=== PATIENT | male | born 1990 | race Caucasian/White ===

== ENCOUNTER 2019-09-10 17:18 | Emergency (ER) | payer MEDICARE, SELFPAY ==
[2019-09-10 17:41] VITALS: BP 150/93; PULSE 110; RESP 16; TEMP 37.1; O2SAT 99; BMI 25.7
[2019-09-10 18:50] LABS: Add Manual Diff / Slide Review NO; Basophils Absolute Auto 100 /uL (0-100); Basophils Percent Auto 1.2 % (0-2); Eosinophils Absolute Auto 100 /uL (0-450); Eosinophils Percent Auto 1.1 % (2-4); Hematocrit 48.1 % (41-53); Hemoglobin 15.9 g/dL (13.5-17.5); Lymphocytes Absolute Auto 2200 /uL (1100-4500); Lymphocytes Percent Auto 30.5 % (25-40); Mean Corpuscular HGB Conc 33.2 % (30-36); Mean Corpuscular Hemoglobin 27.8 PG (26-34); Mean Corpuscular Volume 83.8 fL (80-100); Monocytes Absolute Auto 600 /uL (0-900); Neutrophils Absolute Auto 4200 /uL (1500-7000); Neutrophils Percent Auto 59.2 % (50-75); Platelet Count 197 X10^3/uL (150-400); Red Blood Cell Count 5.74 X10^6/uL (4.5-5.9); Red Cell Distribution Width 13.5 % (11.6-14.8); White Blood Cell Count 7.1 X10^3/uL (4.5-11.0)
[2019-09-10] MEDS: SODIUM CHLORIDE 0.9% 1,000 ML 150 ML IV (18:53)
[2019-09-10 18:58] LABS: INR 1.1 (0.9-1.3); Prothrombin Time 12.6 SECONDS (10.1-12.7)
--- NOTE | 2019-09-10 18:58 | PC.NURSE ---
Patient reports symptoms began approximately 3 days ago as brain fog and chest pain. Reports chest pain as a 5/10 and that it is located in the epigastric area. Pain does not radiate and has not worsened or improved since onset. Peripheral pulses +2 all 4 extremities, capillary refill <2s, and EKG performed. Patient speaks with flat affect and has negative FAST exam. Patient's mother at bedside reports she has given patient risperidone over the last 3 days and the brain fog has moderately improved by chest discomfort increased.
[2019-09-10 19:00] LABS: PTT Partial Thromboplastin Tim 29 SECONDS (26.4-36.2)
[2019-09-10 19:02] LABS: Lactate (Lactic Acid) 0.9 mmol/L (0.7-2.1)
[2019-09-10 19:04] LABS: Acetaminophen < 10 ug/mL (10-30); Alanine Aminotransferase 25 IU/L (<50); Albumin Globulin Ratio 1.5 (1.0-2.8); Alkaline Phosphatase 100 U/L (38-126); Aspartate Aminotransferase 25 IU/L (17-59); BUN Creatinine Ratio 13.5 (6-22); Bilirubin Total 1.7 mg/dL (0.2-1.3); Blood Urea Nitrogen 12 mg/dL (9-20); Calcium 9.9 mg/dL (8.4-10.2); Carbon Dioxide 26 mmol/L (22-32); Chloride 107 mmol/L (98-107); Estimated Glomerular Filt Rate > 60.0 mL/min (>60); Ethanol (ETOH) < 10 mg/dL; Globulin 3.3 g/dL (1.7-4.1); Glucose 107 mg/dL (70-100); HEMOLYSIS < 15 (0-50); Potassium 5.1 mmol/L (3.4-5.1); Salicylate < 1.0 mg/dL (<20); Sodium 140 mmol/L (137-145); Total Protein 8.3 g/dL (6.3-8.2)
[2019-09-10 19:34] LABS: Bacteria Urine None Seen
[2019-09-10 19:36] LABS: Appearance Urine UA CLEAR; Bilirubin Urine UA NEGATIVE (NEGATIVE); Color Urine UA YELLOW; Glucose Urine UA NEGATIVE (Negative); Ketones Urine UA 1+ (NEGATIVE); Leukocyte Esterase Urine UA NEGATIVE (NEGATIVE); Nitrite Urine UA NEGATIVE (Negative); Occult Blood Urine UA NEGATIVE (Negative); Protein Urine UA NEGATIVE (Negative); Urobilinogen Urine UA 0.2 E.U./dL (0.2)
[2019-09-10 19:42] LABS: RBC Urine 0-1/HPF (0-5/HPF); Squamous Epithelial Cell Urine None Seen (0-5/HPF); WBC Urine 0-1/HPF (0-5/HPF)
[2019-09-10 19:43] LABS: Culture Indicated Urine Cult Not Indicated; Mucus Urine 1+ (Negative); UR Morphine/Opiate cutoff 300 Negative (Negative); Ur Creatinine Normal (Normal); Ur Specific Gravity Normal (Normal); Urine Amphetamines Negative (Negative); Urine Barbiturates Negative (Negative); Urine Benzodiazepines Negative (Negative); Urine Cocaine Negative (Negative); Urine MDMA Negative (Negative); Urine Methadone Negative (Negative); Urine Methamphetamines Negative (Negative); Urine Oxycodone Negative (Negative); Urine Phencyclidine Negative (Negative); Urine Tetrahydrocannabinol Negative (Negative); Urine Tricyclic Antidepressant Negative (Negative); Urine pH Normal (Normal)
[2019-09-10 20:12] VITALS: PULSE 63; RESP 18; O2SAT 99
--- NOTE | 2019-09-10 20:23 | ED_ITS ---
HPI - Dizziness <Jacque Copeland PA-C - Last Filed: 09/11/19 00:20> General Chief Complaint: Dizziness Stated Complaint: fluttering in chest, pressure in head Time Seen by Provider: 09/10/19 19:33 Source: patient Mode of arrival: Ambulatory Limitations: no limitations History of Present Illness HPI Narrative: This is a 29-year-old male with a history of schizophrenia, depression, anxiety, who presents with his mother complaining of fast heart that has been happening intermittently over the last few days. As well as complaint of a hollow feeling in his chest. They came to the walk-in clinic initially wanting someone to evaluate him and make sure that his heart was okay. He was referred to the emergency department. He states that he does not have any current auditory or visual hallucinations and initially says he has not been having any trouble with these. On further questioning he does state that in the last few weeks he may have been experiencing some of these. His mother states that she started him on risperidone again independently a few days ago because she still have the prescription and she felt that he was exhibiting symptoms similar to symptoms he had approximately 4 years ago when he was 1st diagnosed with schizophrenia. She says she gave him a total of 4 doses in the last 2 days. She feels that his symptoms have actually improved from a psychological standpoint however he has now been experiencing what he describes as rapid heart rate and a hollow feeling in his chest. She says that 4 years ago he was having a lot of trouble with hallucinations, was started on risperidone but they kept increasing the dose to the point where he was ?a total zombie? she also stated that he gained a lot of weight so she decided to stop the medication entirely, p ut him on a plant based diet. He lives with her, and they report he has been doing well for the last 4 years until the last few weeks. She says that he has become more withdrawn, his speech has become more slow, and his gaze has changed. He denies any thoughts of SI or HI, he denies any current AV hallucinations. He also denies chest pain, fever, shortness of breath, abdominal pain, back pain, syncope, headache or any other symptoms. MD complaint: other (fast heart, hollow feeling chest) Onset (ago): day(s) (2) Timing: intermittent History of similar episodes: Yes (Has felt the hollow feeling in his chest before, this is not new) History of trauma: No Severity: mild Relieving factors: nothing Exacerbating factors: nothing Associated symptoms: denies other symptoms Related Data Allergies Allergy/AdvReac Type Severity Reaction Status Date / Time No Known Drug Allergies Allergy Verified 09/10/19 17:46 Review of Systems <Jacque Copeland PA-C - Last Filed: 09/11/19 00:20> Review of Systems ROS Unobtainable: All systems reviewed & are unremarkable except as noted in HPI and below Patient History <Jacque Copeland PA-C - Last Filed: 09/11/19 00:20> Social History Smoking Status: Current every day smoker Smoking Status: Current every day smoker alcohol intake frequency: 0-2 drinks per day Substance Use Type: does not use Exam <Jacque Copeland PA-C - Last Filed: 09/11/19 00:20> Narrative Exam Narrative: GENERAL: 29 year old patient appears stated age. Well-nourished, well-developed patient, in mild distress. HEAD: Atraumatic. Normocephalic. EYES: Pupils equal round and reactive. Extraocular motions intact. No scleral i cterus. No injection or drainage. ENT: Nose without bleeding, purulent drainage. Throat without erythema, tonsillar hypertrophy or exudate. Airway patent. NECK: Trachea midline. Non tender CARDIOVASCULAR: Regular rate and rhythm without murmurs, gallops, or rubs. RESPIRATORY: Clear to auscultation. Breath sounds equal bilaterally. No wheezes, rales, or rhonchi. GASTROINTESTINAL: Abdomen soft, non-tender, nondistended. EXTREMITIES: No edema or joint tenderness. BACK: Nontender without deformity or crepitance. No flank tenderness. NEURO: AOx3. SKIN: No rash or erythema of visible areas Initial Vital Signs Initial Vital Signs: Vital Signs Temperature 98.7 F 09/10/19 17:41 Pulse Rate 110 H 09/10/19 17:41 Respiratory Rate 16 09/10/19 17:41 Blood Pressure 150/93 H 09/10/19 17:41 Pulse Oximetry 99 09/10/19 17:41 Psych Appearance: grossly normal and well kempt Mental Status: mental status grossly normal Speech and Movement: speech clear and delayed speech Mood: dysthymic mood Affect: blunted Attitude: cooperative Thought Process: normal Thought Content: normal Judgment: judgment good <Lavonne Schaefer MD - Last Filed: 09/11/19 01:10> Initial Vital Signs Initial Vital Signs: Vital Signs Temperature 98.7 F 09/10/19 17:41 Pulse Rate 110 H 09/10/19 17:41 Respiratory Rate 16 09/10/19 17:41 Blood Pressure 150/93 H 09/10/19 17:41 Pulse Oximetry 99 09/10/19 17:41 Scores <Jacque Copeland PA-C - Last Filed: 09/11/19 00:20> GCS [place] coma scale eye opening: Spontaneous [place] coma scale verbal response: Orientated [place] coma scale motor response: Obey commands Mar[place] coma scale total score: 15 Course <Jacque Copeland PA-C - Last Filed: 09/11/19 00:20> Orders Ordered: ED Orders 09/10/19 18:01 EKG-12 Lead Stat 09/10/19 18:36 Acetaminophen Stat Complete Blood Count AUTO DIFF Stat Comprehensive Metabolic Panel Stat Ethanol (ETOH) Stat Lactate (Lactic Acid) Stat Partial Thromboplastin Time Stat Prolactin Stat Prothrombin Time INR Stat Salicylate Stat Thyroid Stimulating Hormone Stat 09/10/19 19:25 Urinalysis and Microscopic Stat Urine Drug Screen, Rapid Stat 09/10/19 19:30 Blood Culture Stat Discontinued Medications Sodium Chloride (Normal Saline 0.9%) 1,000 mls @ 150 mls/hr IV CONT AYALA Last Infusion: 09/10/19 20:33 Dose: 150 mls/hr Documented by: Admin: 09/10/19 18:53 Dose: 150 mls/hr Documented by: FHUDSON Vital Signs Vital signs: Vital Signs - 8 hr 09/10/19 17:41 09/10/19 20:12 Temperature 98.7 F Pulse Rate 110 H 63 Respiratory Rate 16 18 Blood Pressure 150/93 H Pulse Oximetry 99 99 <Lavonne Schaefer MD - Last Filed: 09/11/19 01:10> Orders Ordered: ED Orders 09/10/19 18:01 EKG-12 Lead Stat 09/10/19 18:36 Acetaminophen Stat Complete Blood Count AUTO DIFF Stat Comprehensive Metabolic Panel Stat Ethanol (ETOH) Stat Lactate (Lactic Acid) Stat Partial Thromboplastin Time Stat Prolactin Stat Prothrombin Time INR Stat Salicylate Stat Thyroid Stimulating Hormone Stat 09/10/19 19:25 Urinalysis and Microscopic Stat Urine Drug Screen, Rapid Stat 09/10/19 19:30 Blood Culture Stat Discontinued Medications Sodium Chloride (Normal Saline 0.9%) 1,000 mls @ 150 mls/hr IV CONT AYALA Last Infusion: 09/10/19 20:33 Dose: 150 mls/hr Documented by: Admin: 09/10/19 18:53 Dose: 150 mls/hr Documented by: UDSON Vital Signs Vital signs: Vital Signs - 8 hr 09/10/19 17:41 09/10/19 20:12 Temperature 98.7 F Pulse Rate 110 H 63 Respiratory Rate 16 18 Blood Pressure 150/93 H Pulse Oximetry 99 99 MDM - Dizziness <Jacque Copeland PA-C - Last Filed: 09/11/19 00:20> Differential Diagnosis Differential diagnosis: Likely adverse reaction to drug, orthostatic hypotension and other (SVT, arrythmia, schizophrenia ) Medical Records Attestation: I reviewed the patient's medical records. Medical records narrative: only records available were from walk in clinic today Lab Data Attestation: I reviewed the patient's lab results. Result diagrams: 09/10/19 18:36 09/10/19 18:36 Labs: Lab Results 09/10/19 09/10/19 09/10/19 Range/Units 18:36 18:36 18:36 WBC 7.1 (4.5-11.0) X10^3/uL RBC 5.74 (4.5-5.9) X10^6/uL Hgb 15.9 (13.5-17.5) g/dL Hct 48.1 (41-53) % MCV 83.8 (80-100) fL MCH 27.8 (26-34) PG MCHC 33.2 (30-36) % RDW 13.5 (11.6-14.8) % Plt Count 197 (150-400) X10^3/uL Neut % (Auto) 59.2 (50-75) % Lymph % (Auto) 30.5 (25-40) % [place] % (Auto) 8.0 (3-14) % Eos % (Auto) 1.1 L (2-4) % Baso % (Auto) 1.2 (0-2) % Neut # (Auto) 4200 (5398-6014) /uL Lymph # (Auto) 2200 (3113-9320) /uL [place] # (Auto) 600 (0-900) /uL Eos # (Auto) 100 (0-450) /uL Baso # (Auto) 100 (0-100) /uL PT 12.6 (10.1-12.7) SECONDS INR 1.1 (0.9-1.3) APTT 29 (26.4-36.2) SECONDS Sodium 140 (137-145) mmol/L Potassium 5.1 (3.4-5.1) mmol/L Chloride 107 (98-107) mmol/L Carbon Dioxide 26 (22-32) mmol/L BUN 12 (9-20) mg/dL Creatinine 0.89 (0.66-1.25) mg/dL Estimated GFR > 60.0 (>60) mL/min BUN/Creatinine Ratio 13.5 (6-22) Glucose 107 H (70-100) mg/dL Lactate (0.7-2.1) mmol/L Calcium 9.9 (8.4-10.2) mg/dL Total Bilirubin 1.7 H (0.2-1.3) mg/dL AST 25 (17-59) IU/L ALT 25 (<50) IU/L Alkaline Phosphatase 100 (38-126) U/L Total Protein 8.3 H (6.3-8.2) g/dL Albumin 5.0 (3.5-5.0) g/dL Globulin 3.3 (1.7-4.1) g/dL Albumin/Globulin Ratio 1.5 (1.0-2.8) TSH (0.47-4.68) uIU/mL Prolactin 29.0 H (3.7-17.9) ng/mL Urine Color Urine Appearance Urine pH (4.5-8.0) Ur Specific [place] (1.000-1.035) Urine Protein (Negative) Urine Glucose (UA) (Negative) g/dL Urine Ketones (NEGATIVE) Urine Occult Blood (Negative) Urine Nitrate (Negative) Urine Bilirubin (NEGATIVE) Urine Urobilinogen (0.2) E.U./dL Ur Leukocyte Esterase (NEGATIVE) Urine RBC (0-5/HPF) Urine WBC (0-5/HPF) Ur Squamous Epith Cells (0-5/HPF) Urine Bacteria (None) Urine Mucus (Negative) Ur Culture Indicated? Salicylates < 1.0 (<20) mg/dL U Opiates 300ng/mL cut (Negative) Ur Oxycodone Screen (Negative) Urine Methadone Screen (Negative) Acetaminophen < 10 L (10-30) ug/mL Ur Barbiturates Screen (Negative) U Tricyclic Antidepress (Negative) Ur Phencyclidine Scrn (Negative) Ur Amphetamines Screen (Negative) U Methamphetamines Scrn (Negative) Ur MDMA Scrn (Ecstasy) (Negative) U Benzodiazepines Scrn (Negative) Urine Cocaine Screen (Negative) U Marijuana (THC) Screen (Negative) Ethyl Alcohol < 10 ( - 10) mg/dL 09/10/19 09/10/19 09/10/19 Range/Units 18:36 18:36 19:25 WBC (4.5-11.0) X10^3/uL RBC (4.5-5.9) X10^6/uL Hgb (13.5-17.5) g/dL Hct (41-53) % MCV (80-100) fL MCH (26-34) PG MCHC (30-36) % RDW (11.6-14.8) % Plt Count (150-400) X10^3/uL Neut % (Auto) (50-75) % Lymph % (Auto) (25-40) % [place] % (Auto) (3-14) % Eos % (Auto) (2-4) % Baso % (Auto) (0-2) % Neut # (Auto) (2197-2805) /uL Lymph # (Auto) (4352-8693) /uL [place] # (Auto) (0-900) /uL Eos # (Auto) (0-450) /uL Baso # (Auto) (0-100) /uL PT (10.1-12.7) SECONDS INR (0.9-1.3) APTT (26.4-36.2) SECONDS Sodium (137-145) mmol/L Potassium (3.4-5.1) mmol/L Chloride (98-107) mmol/L Carbon Dioxide (22-32) mmol/L BUN (9-20) mg/dL Creatinine (0.66-1.25) mg/dL Estimated GFR (>60) mL/min BUN/Creatinine Ratio (6-22) Glucose (70-100) mg/dL Lactate 0.9 (0.7-2.1) mmol/L Calcium (8.4-10.2) mg/dL Total Bilirubin (0.2-1.3) mg/dL AST (17-59) IU/L ALT (<50) IU/L Alkaline Phosphatase (38-126) U/L Total Protein (6.3-8.2) g/dL Albumin (3.5-5.0) g/dL Globulin (1.7-4.1) g/dL Albumin/Globulin Ratio (1.0-2.8) TSH 3.00 (0.47-4.68) uIU/mL Prolactin (3.7-17.9) ng/mL Urine Color Yellow Urine Appearance Clear Urine pH 7.0 (4.5-8.0) Ur Specific [place] [address] 1.020 (1.000-1.035) Urine Protein Negative (Negative) Urine Glucose (UA) Negative (Negative) g/dL Urine Ketones 1+ H (NEGATIVE) Urine Occult Blood Negative (Negative) Urine Nitrate Negative (Negative) Urine Bilirubin Negative (NEGATIVE) Urine Urobilinogen 0.2 (0.2) E.U./dL Ur Leukocyte Esterase Negative (NEGATIVE) Urine RBC 0-1/hpf (0-5/HPF) Urine WBC 0-1/hpf (0-5/HPF) Ur Squamous Epith Cells None seen (0-5/HPF) Urine Bacteria None seen (None) Urine Mucus 1+ H (Negative) Ur Culture Indicated? Cult not indicated Salicylates (<20) mg/dL U Opiates 300ng/mL cut (Negative) Ur Oxycodone Screen (Negative) Urine Methadone Screen (Negative) Acetaminophen (10-30) ug/mL Ur Barbiturates Screen (Negative) U Tricyclic Antidepress (Negative) Ur Phencyclidine Scrn (Negative) Ur Amphetamines Screen (Negative) U Methamphetamines Scrn (Negative) Ur MDMA Scrn (Ecstasy) (Negative) U Benzodiazepines Scrn (Negative) Urine Cocaine Screen (Negative) U Marijuana (THC) Screen (Negative) Ethyl Alcohol ( - 10) mg/dL 09/10/19 Range/Units 19:25 WBC (4.5-11.0) X10^3/uL RBC (4.5-5.9) X10^6/uL Hgb (13.5-17.5) g/dL Hct (41-53) % MCV (80-100) fL MCH (26-34) PG MCHC (30-36) % RDW (11.6-14.8) % Plt Count (150-400) X10^3/uL Neut % (Auto) (50-75) % Lymph % (Auto) (25-40) % [place] % (Auto) (3-14) % Eos % (Auto) (2-4) % Baso % (Auto) (0-2) % Neut # (Auto) (7268-2967) /uL Lymph # (Auto) (1621-0563) /uL [place] # (Auto) (0-900) /uL Eos # (Auto) (0-450) /uL Baso # (Auto) (0-100) /uL PT (10.1-12.7) SECONDS INR (0.9-1.3) APTT (26.4-36.2) SECONDS Sodium (137-145) mmol/L Potassium (3.4-5.1) mmol/L Chloride (98-107) mmol/L Carbon Dioxide (22-32) mmol/L BUN (9-20) mg/dL Creatinine (0.66-1.25) mg/dL Estimated GFR (>60) mL/min BUN/Creatinine Ratio (6-22) Glucose (70-100) mg/dL Lactate (0.7-2.1) mmol/L Calcium (8.4-10.2) mg/dL Total Bilirubin (0.2-1.3) mg/dL AST (17-59) IU/L ALT (<50) IU/L Alkaline Phosphatase (38-126) U/L Total Protein (6.3-8.2) g/dL Albumin (3.5-5.0) g/dL Globulin (1.7-4.1) g/dL Albumin/Globulin Ratio (1.0-2.8) TSH (0.47-4.68) uIU/mL Prolactin (3.7-17.9) ng/mL Urine Color Urine Appearance Urine pH (4.5-8.0) Ur Specific [place] [address] (1.000-1.035) Urine Protein (Negative) Urine Glucose (UA) (Negative) g/dL Urine Ketones (NEGATIVE) Urine Occult Blood (Negative) Urine Nitrate (Negative) Urine Bilirubin (NEGATIVE) Urine Urobilinogen (0.2) E.U./dL Ur Leukocyte Esterase (NEGATIVE) Urine RBC (0-5/HPF) Urine WBC (0-5/HPF) Ur Squamous Epith Cells (0-5/HPF) Urine Bacteria (None) Urine Mucus (Negative) Ur Culture Indicated? Salicylates (<20) mg/dL U Opiates 300ng/mL cut Negative (Negative) Ur Oxycodone Screen Negative (Negative) Urine Methadone Screen Negative (Negative) Acetaminophen (10-30) ug/mL Ur Barbiturates Screen Negative (Negative) U Tricyclic Antidepress Negative (Negative) Ur Phencyclidine Scrn Negative (Negative) Ur Amphetamines Screen Negative (Negative) U Methamphetamines Scrn Negative (Negative) Ur MDMA Scrn (Ecstasy) Negative (Negative) U Benzodiazepines Scrn Negative (Negative) Urine Cocaine Screen Negative (Negative) U Marijuana (THC) Screen Negative (Negative) Ethyl Alcohol ( - 10) mg/dL ECG Data Attestation: I personally reviewed and interpreted this ECG as follows: Interpretation: Sinus tachycardia, heart rate 103 P are interval 130 QRS 84 QT 326 P axis 91 T axis 23 MDM Narrative Medical decision making narrative: This is a 29-year-old with a history of schizophrenia who has not been on medications for 4 years recently restarted on risperidone 2 days ago by mother presents to the emergency department complaining of feeling of hollowness in his chest and intermittent fast heart rate. He was slightly tachycardic on his arrival, however this resolved during his emergency department stay. Differential diagnoses considered include: medication reaction, SVT, arrythmia, dehydration, hyperthyroid, intentional ingestion, schizophrenia. They were advised that they should keep their appointment which has been set up to establish care again for psych for him on this coming Saturday. Suggested it is probably not advisable to self administer psych meds without having his appointment 1st. They were advised to seek medical care with any new or concerning symptoms. His workup today was unremarkable. <Lavonne Schaefer MD - Last Filed: 09/11/19 01:10> Lab Data Labs: Lab Results 09/10/19 09/10/19 09/10/19 Range/Units 18:36 18:36 18:36 WBC 7.1 (4.5-11.0) X10^3/uL RBC 5.74 (4.5-5.9) X10^6/uL Hgb 15.9 (13.5-17.5) g/dL Hct 48.1 (41-53) % MCV 83.8 (80-100) fL MCH 27.8 (26-34) PG MCHC 33.2 (30-36) % RDW 13.5 (11.6-14.8) % Plt Count 197 (150-400) X10^3/uL Neut % (Auto) 59.2 (50-75) % Lymph % (Auto) 30.5 (25-40) % [place] % (Auto) 8.0 (3-14) % Eos % (Auto) 1.1 L (2-4) % Baso % (Auto) 1.2 (0-2) % Neut # (Auto) 4200 (2434-8393) /uL Lymph # (Auto) 2200 (6609-3095) /uL [place] # (Auto) 600 (0-900) /uL Eos # (Auto) 100 (0-450) /uL Baso # (Auto) 100 (0-100) /uL PT 12.6 (10.1-12.7) SECONDS INR 1.1 (0.9-1.3) APTT 29 (26.4-36.2) SECONDS Sodium 140 (137-145) mmol/L Potassium 5.1 (3.4-5.1) mmol/L Chloride 107 (98-107) mmol/L Carbon Dioxide 26 (22-32) mmol/L BUN 12 (9-20) mg/dL Creatinine 0.89 (0.66-1.25) mg/dL Estimated GFR > 60.0 (>60) mL/min BUN/Creatinine Ratio 13.5 (6-22) Glucose 107 H (70-100) mg/dL Lactate (0.7-2.1) mmol/L Calcium 9.9 (8.4-10.2) mg/dL Total Bilirubin 1.7 H (0.2-1.3) mg/dL AST 25 (17-59) IU/L ALT 25 (<50) IU/L Alkaline Phosphatase 100 (38-126) U/L Total Protein 8.3 H (6.3-8.2) g/dL Albumin 5.0 (3.5-5.0) g/dL Globulin 3.3 (1.7-4.1) g/dL Albumin/Globulin Ratio 1.5 (1.0-2.8) TSH (0.47-4.68) uIU/mL Prolactin 29.0 H (3.7-17.9) ng/mL Urine Color Urine Appearance Urine pH (4.5-8.0) Ur Specific [place] [address] (1.000-1.035) Urine Protein (Negative) Urine Glucose (UA) (Negative) g/dL Urine Ketones (NEGATIVE) Urine Occult Blood (Negative) Urine Nitrate (Negative) Urine Bilirubin (NEGATIVE) Urine Urobilinogen (0.2) E.U./dL Ur Leukocyte Esterase (NEGATIVE) Urine RBC (0-5/HPF) Urine WBC (0-5/HPF) Ur Squamous Epith Cells (0-5/HPF) Urine Bacteria (None) Urine Mucus (Negative) Ur Culture Indicated? Salicylates < 1.0 (<20) mg/dL U Opiates 300ng/mL cut (Negative) Ur Oxycodone Screen (Negative) Urine Methadone Screen (Negative) Acetaminophen < 10 L (10-30) ug/mL Ur Barbiturates Screen (Negative) U Tricyclic Antidepress (Negative) Ur Phencyclidine Scrn (Negative) Ur Amphetamines Screen (Negative) U Methamphetamines Scrn (Negative) Ur MDMA Scrn (Ecstasy) (Negative) U Benzodiazepines Scrn (Negative) Urine Cocaine Screen (Negative) U Marijuana (THC) Screen (Negative) Ethyl Alcohol < 10 ( - 10) mg/dL 09/10/19 09/10/19 09/10/19 Range/Units 18:36 18:36 19:25 WBC (4.5-11.0) X10^3/uL RBC (4.5-5.9) X10^6/uL Hgb (13.5-17.5) g/dL Hct (41-53) % MCV (80-100) fL MCH (26-34) PG MCHC (30-36) % RDW (11.6-14.8) % Plt Count (150-400) X10^3/uL Neut % (Auto) (50-75) % Lymph % (Auto) (25-40) % [place] % (Auto) (3-14) % Eos % (Auto) (2-4) % Baso % (Auto) (0-2) % Neut # (Auto) (8612-4119) /uL Lymph # (Auto) (8179-7084) /uL [place] # (Auto) (0-900) /uL Eos # (Auto) (0-450) /uL Baso # (Auto) (0-100) /uL PT (10.1-12.7) SECONDS INR (0.9-1.3) APTT (26.4-36.2) SECONDS Sodium (137-145) mmol/L Potassium (3.4-5.1) mmol/L Chloride (98-107) mmol/L Carbon Dioxide (22-32) mmol/L BUN (9-20) mg/dL Creatinine (0.66-1.25) mg/dL Estimated GFR (>60) mL/min BUN/Creatinine Ratio (6-22) Glucose (70-100) mg/dL Lactate 0.9 (0.7-2.1) mmol/L Calcium (8.4-10.2) mg/dL Total Bilirubin (0.2-1.3) mg/dL AST (17-59) IU/L ALT (<50) IU/L Alkaline Phosphatase (38-126) U/L Total Protein (6.3-8.2) g/dL Albumin (3.5-5.0) g/dL Globulin (1.7-4.1) g/dL Albumin/Globulin Ratio (1.0-2.8) TSH 3.00 (0.47-4.68) uIU/mL Prolactin (3.7-17.9) ng/mL Urine Color Yellow Urine Appearance Clear Urine pH 7.0 (4.5-8.0) Ur Specific [place] [address] 1.020 (1.000-1.035) Urine Protein Negative (Negative) Urine Glucose (UA) Negative (Negative) g/dL Urine Ketones 1+ H (NEGATIVE) Urine Occult Blood Negative (Negative) Urine Nitrate Negative (Negative) Urine Bilirubin Negative (NEGATIVE) Urine Urobilinogen 0.2 (0.2) E.U./dL Ur Leukocyte Esterase Negative (NEGATIVE) Urine RBC 0-1/hpf (0-5/HPF) Urine WBC 0-1/hpf (0-5/HPF) Ur Squamous Epith Cells None seen (0-5/HPF) Urine Bacteria None seen (None) Urine Mucus 1+ H (Negative) Ur Culture Indicated? Cult not indicated Salicylates (<20) mg/dL U Opiates 300ng/mL cut (Negative) Ur Oxycodone Screen (Negative) Urine Methadone Screen (Negative) Acetaminophen (10-30) ug/mL Ur Barbiturates Screen (Negative) U Tricyclic Antidepress (Negative) Ur Phencyclidine Scrn (Negative) Ur Amphetamines Screen (Negative) U Methamphetamines Scrn (Negative) Ur MDMA Scrn (Ecstasy) (Negative) U Benzodiazepines Scrn (Negative) Urine Cocaine Screen (Negative) U Marijuana (THC) Screen (Negative) Ethyl Alcohol ( - 10) mg/dL 09/10/19 Range/Units 19:25 WBC (4.5-11.0) X10^3/uL RBC (4.5-5.9) X10^6/uL Hgb (13.5-17.5) g/dL Hct (41-53) % MCV (80-100) fL MCH (26-34) PG MCHC (30-36) % RDW (11.6-14.8) % Plt Count (150-400) X10^3/uL Neut % (Auto) (50-75) % Lymph % (Auto) (25-40) % [place] % (Auto) (3-14) % Eos % (Auto) (2-4) % Baso % (Auto) (0-2) % Neut # (Auto) (9973-7072) /uL Lymph # (Auto) (5708-1835) /uL [place] # (Auto) (0-900) /uL Eos # (Auto) (0-450) /uL Baso # (Auto) (0-100) /uL PT (10.1-12.7) SECONDS INR (0.9-1.3) APTT (26.4-36.2) SECONDS Sodium (137-145) mmol/L Potassium (3.4-5.1) mmol/L Chloride (98-107) mmol/L Carbon Dioxide (22-32) mmol/L BUN (9-20) mg/dL Creatinine (0.66-1.25) mg/dL Estimated GFR (>60) mL/min BUN/Creatinine Ratio (6-22) Glucose (70-100) mg/dL Lactate (0.7-2.1) mmol/L Calcium (8.4-10.2) mg/dL Total Bilirubin (0.2-1.3) mg/dL AST (17-59) IU/L ALT (<50) IU/L Alkaline Phosphatase (38-126) U/L Total Protein (6.3-8.2) g/dL Albumin (3.5-5.0) g/dL Globulin (1.7-4.1) g/dL Albumin/Globulin Ratio (1.0-2.8) TSH (0.47-4.68) uIU/mL Prolactin (3.7-17.9) ng/mL Urine Color Urine Appearance Urine pH (4.5-8.0) Ur Specific [place] [address] (1.000-1.035) Urine Protein (Negative) Urine Glucose (UA) (Negative) g/dL Urine Ketones (NEGATIVE) Urine Occult Blood (Negative) Urine Nitrate (Negative) Urine Bilirubin (NEGATIVE) Urine Urobilinogen (0.2) E.U./dL Ur Leukocyte Esterase (NEGATIVE) Urine RBC (0-5/HPF) Urine WBC (0-5/HPF) Ur Squamous Epith Cells (0-5/HPF) Urine Bacteria (None) Urine Mucus (Negative) Ur Culture Indicated? Salicylates (<20) mg/dL U Opiates 300ng/mL cut Negative (Negative) Ur Oxycodone Screen Negative (Negative) Urine Methadone Screen Negative (Negative) Acetaminophen (10-30) ug/mL Ur Barbiturates Screen Negative (Negative) U Tricyclic Antidepress Negative (Negative) Ur Phencyclidine Scrn Negative (Negative) Ur Amphetamines Screen Negative (Negative) U Methamphetamines Scrn Negative (Negative) Ur MDMA Scrn (Ecstasy) Negative (Negative) U Benzodiazepines Scrn Negative (Negative) Urine Cocaine Screen Negative (Negative) U Marijuana (THC) Screen Negative (Negative) Ethyl Alcohol ( - 10) mg/dL Discharge Plan Departure Patient Disposition: Home Clinical Impression: Heart palpitations Schizophrenia Qualifiers: Schizophrenia type: unspecified Qualified Code(s): F20.9 - Schizophrenia, unspecified Discharge Date/Time: 09/10/19 20:37 Instructions: Risperidone Activity Restrictions/Additional Instructions: Thank you for letting us a part of your care in the emergency department today. All your labs did return and everything looks okay. On my exam during your stay here your heart rhythm looked okay and sounded fine as well. If you do have any new or concerning symptoms please do not hesitate to seek medical care. I would recommend that you wait to continue or start any new psych medications until you have with the doctor on Saturday. Please keep your appointment plan to follow up regarding Gary's schizophrenia and his recent symptoms. There is no evidence of an emergent or life threatening illness at this time, but follow up with your doctor in 1-2 days is recommended nonetheless to continue to rule out serious underlying causes of your symptoms. Please call the office for an appointment. Please return to the Emergency Department for any worsening or persistent symptoms. Please take medications as directed. Referrals: Rafael Lane MD [Primary Care Provider] - <Lavonne Schaefer MD - Last Filed: 09/11/19 01:10> Cosign ED Attending Cosignature Attestation: I was immediately available in the department for consultation throughout this patient's visit. I agree with documentation as above. Lavonne Schaefer MD
== END 2019-09-10 20:37 | disposition home or self-care (01) ==
PROVIDERS: Emergency Medicine; Emergency Provider Student in an Organized Health Care Education/Training Program; Family Provider Internal Medicine; PCP Internal Medicine
DX: R00.2 Palpitations (principal); F20.9 Schizophrenia, unspecified
CPT/HCPCS: 36415; 80053; 80305; 80320; 80329; 81001; 83605; 84146; 84443; 85025; 85610; 85730; 87040; 93005; 96360; 96361; 99284; G0480

== ENCOUNTER → 2019-09-15 13:44 | Outpatient (CLI) | payer OTHER, MEDICARE, SELFPAY ==
--- NOTE | 2019-09-15 13:51 | DI.CT.S_ITS ---
PROCEDURE: CT HEAD/BRAIN WO CON INDICATIONS: head pressure TECHNIQUE: Noncontrast 4.5 mm thick angled axial sections acquired from the foramen magnum to the vertex, with coronal and sagittal reformats. For radiation dose reduction, the following was used: automated exposure control, adjustment of mA and/or kV according to patient size. COMPARISON: None. FINDINGS: Image quality: Excellent. CSF spaces: Basal cisterns are patent. No extra-axial fluid collections. Ventricles are normal in size and shape. Brain: No midline shift. No intracranial masses or hemorrhage. Szymanski-white matter interface is normal. Skull and face: Calvarium and visualized facial bones are intact, without suspicious lesions. Sinuses: Visualized sinuses and mastoids are clear. IMPRESSION: No acute intracranial abnormality demonstrated. No imaging explanation for headache. MRI could be considered for improved sensitivity. Dictated by: Elia Cummings M.D. on 09/15/2019 at 14:02 Approved by: Elia Cummings M.D. on 09/15/2019 at 14:04
== END ==
PROVIDERS: Family Provider Internal Medicine; PCP Registered Nurse; Referring Provider Registered Nurse; Visit Provider Registered Nurse
DX: G44.209 Tension-type headache, unspecified, not intractable (principal)
CPT/HCPCS: 70450

== ENCOUNTER → 2019-12-23 09:16 | Outpatient (CLI) | payer OTHER, MEDICARE, SELFPAY ==
[2019-12-23 11:01] LABS: Cholesterol 155 mg/dL (140-199); HDL Cholesterol 36 mg/dL (40-60); LDL Cholesterol Calculated 94 mg/dL (<100); Triglycerides 127 mg/dL (35-150)
== END ==
PROVIDERS: Family Provider Internal Medicine; PCP Registered Nurse; Referring Provider Psychiatry & Neurology Psychiatry; Visit Provider Psychiatry & Neurology Psychiatry
DX: F20.0 Paranoid schizophrenia (principal)
CPT/HCPCS: 36415; 80061